=== PATIENT | male | born 1975 | race Caucasian/White ===

== ENCOUNTER → 2017-01-09 | Outpatient (CLI) | payer BC ==
[2017-01-09 10:14] VITALS: BP 128/86
== END ==
LOC: MHUC 09:28
PROVIDERS: ATTEND Physician Assistant
DX: M79.672 Pain in left foot (principal)
CPT/HCPCS: 99213

== ENCOUNTER → 2017-02-15 | Outpatient (REF) | payer BC ==
[~2017-02-15] MED LIST: ATN50T PO; CEPH-331 PO; DICL100G13 TOP; FURO-124 PO; NF-FLON16G; POTA20TA12 PO; SPIR50TA PO; TEST100V IM; TRIA1TAB5 PO
[2017-02-15 18:08] LABS: BASOPHILS % (AUTO) 0 % (0-2); EOSINOPHILS # (AUTO) 0.1 10^3uL; EOSINOPHILS % (AUTO) 2 % (0-4); LYMPHOCYTES # (AUTO) 2.6 X10^3; MEAN CORPUSCULAR HEMOGLOBIN 30.8 PG (26.0-34.0); MEAN CORPUSCULAR HGB CONC 33.3 g/dL (31.0-37.0); MEAN CORPUSCULAR VOLUME 92 FL (80-100); MONOCYTES # (AUTO) 0.5 X10^3; MONOCYTES % (AUTO) 6 % (3-11); NEUTROPHILS # (AUTO) 5.3 X10^3; NEUTROPHILS % (AUTO) 61 % (51-67); PLATELET COUNT 253 10^3uL (150-450); WHITE BLOOD COUNT 8.63 10^3uL (4.0-11.0)
[2017-02-15 18:22] LABS: ALBUMIN 4.1 g/dL (3.4-5.0); TOTAL PROTEIN 7.2 g/dL (6.4-8.5)
== END ==
LOC: CLAB.LICHD 17:59
PROVIDERS: ATTEND Family Medicine
DX: I87.2 Venous insufficiency (chronic) (peripheral) (principal); I10 Essential (primary) hypertension; Z13.6 Encounter for screening for cardiovascular disorders; E29.1 Testicular hypofunction
CPT/HCPCS: 80053; 80061; 84403; 85025

== ENCOUNTER → 2017-02-15 | Outpatient (REF) | payer BC | LOC: LAB 16:58 | PROVIDERS: ATTEND Family Medicine | DX: Z53.8 Procedure and treatment not carried out for other reasons (principal) ==